=== PATIENT | female | born 1970 | race American Indian/Alaskan Native ===

== ENCOUNTER 2017-01-31 01:08 | Emergency (ER) | payer OTHER | END 2017-01-31 02:40 | disposition left against medical advice (07) | LOC: ED 01:08 | DX: T78.40XA Allergy, unspecified, initial encounter (principal); L29.9 Pruritus, unspecified; Z53.21 Procedure and treatment not carried out due to patient leaving prior to being seen by health care provider ==

== ENCOUNTER 2020-05-14 01:29 | Emergency (ER) | payer OTHER ==
[2020-05-14 01:55] VITALS: BP 135/80
[2020-05-14] MEDS ORDERED: ACETAMINOPHEN 325 MG TAB PO ONE (03:03)
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
--- NOTE | 2020-05-14 05:13 | XRay Report ---
Right hand 3 views INDICATION: Right hand pain and swelling. IMPRESSION: No acute fracture or subluxation is identified. 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 Signer Name: Eben Onofre MD Signed: 05/14/2020 5:09 AM Workstation Name: [id number]
== END 2020-05-14 05:43 | disposition home or self-care (01) ==
LOC: ED 01:29
DX: S00.93XA Contusion of unspecified part of head, initial encounter (principal); Z79.899 Other long term (current) drug therapy; V49.59XA Passenger injured in collision with other motor vehicles in traffic accident, initial encounter; Y93.89 Activity, other specified; Y92.488 Other paved roadways as the place of occurrence of the external cause; Y99.8 Other external cause status